=== PATIENT | male | born 1995 | race Caucasian/White ===

== ENCOUNTER 2020-08-10 14:29 | Emergency (ER) | payer MEDICAID ==
--- NOTE | 2020-08-10 14:39 | ERPHSYRPT ---
- History of Present Illness Time Seen by Provider: 08/10/20 14:38 Source: patient Exam Limitations: no limitations Physician History: This is a 25-year-old white male who presents with right upper posterior dental pain that began yesterday. Patient has not yet seen a dentist and he plans on calling them tomorrow for evaluation. Timing/Duration: abrupt onset Severity: moderate ENT Location: dental Prearrival Treatment: no prearrival treatment Associated Symptoms: tooth pain Allergies/Adverse Reactions: erythromycin base Allergy (Verified 08/10/20 14:41) morphine Adverse Reaction (Verified 08/10/20 14:42) Home Medications: Aspirin EC 81 mg [Ecotrin 81 mg] 81 mg PO DAILY 08/10/20 [History] Omeprazole 20 mg PO DAILY 08/10/20 [History] Travel Risk - International Travel Have you traveled outside of the country in past 3 weeks: No - Coronavirus Screening Are you exhibiting any of the following symptoms?: No Close contact with a COVID-19 positive Pt in past 14-21 Days: No - Review of Systems Constitutional: No Symptoms Eyes: No Symptoms Ears, Nose, & Throat: Other (Dental pain right side upper back molars) Respiratory: No Symptoms Cardiac: No Symptoms Abdominal/Gastrointestinal: No Symptoms Genitourinary Symptoms: No Symptoms Musculoskeletal: No Symptoms Skin: No Symptoms Neurological: No Symptoms Psychological: No Symptoms Endocrine: No Symptoms Hematologic/Lymphatic: No Symptoms Immunological/Allergic: No Symptoms All Other Systems: Reviewed and Negative - Past Medical History Pertinent Past Medical History: No - Past Surgical History Past Surgical History: No - Nursing Vital Signs Nursing Vital Signs: Initial Vital Signs Temperature 98.4 F 08/10/20 14:32 Pulse Rate 84 08/10/20 14:32 Blood Pressure 167/102 08/10/20 14:32 O2 Sat by Pulse Oximetry 98 08/10/20 14:32 Pain Scale Pain Intensity 9 - Physical Exam General Appearance: no apparent distress, alert, anxiety Eye Exam: bilateral eye: normal inspection, PERRL, EOMI Ear Exam: bilateral ear: auricle normal Nasal Exam: normal inspection Throat Exam: normal, pharynx normal (Right upper posterior dental fibrinous exudate redness. 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 Use Tylenol and ibuprofen for pain control. Call your dentist tomorrow for definitive care. Take your antibiotics as prescribed. Prescriptions: Amoxicillin 500 mg Cap [Amoxil 500 mg] 500 mg PO TID #30 capsule
[2020-08-10 14:41] VITALS: BP 167/102; PULSE 84; O2SAT 98
[2020-08-10] MEDS ORDERED: AMOXIL 500 MG PO ONE (15:04)
[2020-08-10] MEDS ORDERED: OXYCODONE-ACETAMINOPHEN 10-325 PO STA (15:04)
[2020-08-10] MEDS ORDERED: MOTRIN 600 MG PO ONE (15:04)
[2020-08-10] MEDS ORDERED: MOTRIN 600 MG ONE (15:11)
[2020-08-10] MEDS ORDERED: OXYCODONE-ACETAMINOPHEN 10-325 ONE (15:11)
[2020-08-10] MEDS ORDERED: AMOXIL 500 MG ONE (15:11)
== END 2020-08-10 15:51 | disposition home or self-care (01) ==
LOC: ED 14:29
DX: K04.7 Periapical abscess without sinus (principal); K08.89 Other specified disorders of teeth and supporting structures
CPT/HCPCS: 99283; A9270-GY

== ENCOUNTER 2021-06-10 08:23 | Emergency (ER) | payer MEDICAID ==
[2021-06-10] MEDS ORDERED: DECADRON 10MG INJ. IM ONE (09:00)
[2021-06-10] MEDS ORDERED: TORAdol 30 mg Injection IV ONE (09:03)
[2021-06-10] MEDS ORDERED: TORAdol 30 mg Injection ONE (09:06)
[2021-06-10] MEDS ORDERED: DECADRON 10MG INJ. ONE (09:06)
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
[2021-06-10 09:39] LABS: Appearance CLEAR (CLEAR); Bilirubin NEGATIVE (NEGATIVE); Glucose NEGATIVE (NEGATIVE); Ketones NEGATIVE (NEGATIVE); RBC NEGATIVE Ery/ul (0-5); Specific Gravity 1.025 (1.005-1.025)
[2021-06-10 09:40] LABS: Bacteria RARE /HPF (NEGATIVE); Dipstick done @ ? MAIN LAB; Epithelial Cells RARE /HPF (FEW); Nitrite NEGATIVE (NEGATIVE); Protein,Urine Dip NEGATIVE (Negative); RBC 0-2 /HPF (0-2); Urine Cultured Indicated? NO; Urobilinogen 1 mg/dL (0-1); WBC 0-2 /HPF (0-5)
--- NOTE | 2021-06-10 09:44 | XRAY ---
Indication: Back and bilateral leg pain. Multiple contiguous axial images obtained through the lumbar spine. Sagittal and coronal reformatted images obtained. Comparison: None Axial images negative for acute fracture, suspicious bony lesions, or spinal canal stenosis. Facets and SI joints are bilaterally symmetric. Sagittal and coronal reformatted images demonstrate normal alignment with vertebral body heights/disc spaces maintained. No acute compression fracture or subluxation. Visualized noncontrasted soft tissues unremarkable. Impression: Normal CT lumbar spine.
[2021-06-10 10:16] VITALS: BP 104/63; PULSE 68; O2SAT 96
== END 2021-06-10 10:33 | disposition home or self-care (01) ==
LOC: ED 08:23
DX: S39.012A Strain of muscle, fascia and tendon of lower back, initial encounter (principal); X50.0XXA Overexertion from strenuous movement or load, initial encounter; Y99.0 Civilian activity done for income or pay; M54.42 Lumbago with sciatica, left side; M54.41 Lumbago with sciatica, right side; G89.29 Other chronic pain; I10 Essential (primary) hypertension; K21.9 Gastro-esophageal reflux disease without esophagitis; Z79.899 Other long term (current) drug therapy
CPT/HCPCS: 72131; 81015; 96372; 96374; 99284; J1100; J1885